=== PATIENT | male | born 1940 | race Caucasian/White ===

== ENCOUNTER 2023-05-29 19:37 | Inpatient (IN) | payer OTHER ==
[~2023-05-29] VITALS: Ht 177.8 cm; Wt 77.0 kg
[2023-05-29 20:45] LABS: Basophils # (auto) 0.1 10 ^3/uL (0-0.2); Basophils % (auto) 0.6 % (0.0-2.0); Eosinophils # (auto) 0.2 10 ^3/uL (0-0.8); Eosinophils % (auto) 2.2 % (0.0-7.0); Hematocrit 43.1 % (41.0-53.0); Hemoglobin 14.5 g/dL (13.5-17.5); Lymphocytes # (auto) 1.6 10 ^3/uL (0.4-5.4); Lymphocytes % (auto) 15.8 % (10.0-50.0); Mean Corpuscular Hgb Conc. 33.6 g/dL (32.0-36.0); Mean Corpuscular Volume 92.2 fL (80.0-100.0); Monocytes # (auto) 1.2 10 ^3/uL (0-1.3); Monocytes % (auto) 11.9 % (0.0-12.0); Neutrophils % (auto) 69.5 % (37.0-80.0); Red Blood Cells 4.68 10^6/uL (4.5-5.90); Red Cell Distribution Width 13.9 % (11.8-14.3); White Blood Cell 10.1 10^3/uL (4.4-10.8)
[2023-05-29 21:04] LABS: Alanine Aminotransferase 39 U/L (7-40); Albumin 4.2 g/dL (3.2-4.8); Alkaline Phosphatase 102 U/L (46-116); Calcium 9.4 mg/dL (8.5-10.1)
[2023-05-29 21:05] LABS: Anion Gap 10 (5-15); Aspartate Aminotransferase 37 U/L (13-40); BUN/Creatinine Ratio 20.2 (10.0-20.0); Bilirubin, Total 0.5 mg/dL (0.2-1.0); Blood Urea Nitrogen 21 mg/dL (9-23); Carbon Dioxide 22 mmol/L (20-30); Chloride 110 mmol/L (98-107); Glucose 91 mg/dL (74-106); Potassium 3.7 mmol/L (3.5-5.1); Sodium 142 mmol/L (136-145); Total Protein 6.1 g/dL (5.7-8.2)
[2023-05-29 21:15] LABS: INR 1.13 (0.9-1.15); Prothrombin Time 11.8 sec (9.3-11.8)
[2023-05-29] MEDS ORDERED: ACETAMINOPHEN 325 MG TAB PO PRN (23:15)
[2023-05-30] VITALS: PULSE 86; RESP 18; O2SAT 98
[2023-05-30 00:51] LABS: Urine Bacteria NONE SEEN /hpf (None Seen); Urine Blood Negative /uL (Negative); Urine Clarity Clear (Clear); Urine Color Colorless (Yellow); Urine Mucus FEW (None Seen); Urine Protein, UAD Negative (Negative); Urine Specific Gravity 1.014 (1.001-1.035); Urine Urobilinogen Normal (Negative); Urine WBC 1 /hpf (0 - 3); Urine pH 6.5 (5.0-8.0)
[2023-05-30] MEDS ORDERED: MORPHINE SULFATE INJ 2 MG/ml SYRG IV PRN ×2 (02:00→15:00)
[2023-05-30] MEDS ORDERED: NITROGLYCERIN 0.4 MG SL TAB SL PRN (02:00)
[2023-05-30] MEDS: ONDANSETRON HCL 4 MG/2 ML VIAL IV PRN (02:21)
[2023-05-30] MEDS: KETOROLAC TROMETH 30 MG/ML 1ML VIAL IV ONE (02:22)
[2023-05-30] MEDS: fentaNYL CITRATE 100 MCG/2 ML VL IV ONE (02:24)
[2023-05-30] MEDS: SODIUM CHLORIDE 0.9% 1,000 ML IV SCH (02:24)
[2023-05-30 06:07] LABS: Basophils # (auto) 0.1 10 ^3/uL (0-0.2); Basophils % (auto) 0.8 % (0.0-2.0); Eosinophils # (auto) 0.3 10 ^3/uL (0-0.8); Eosinophils % (auto) 3.2 % (0.0-7.0); Hematocrit 40.1 % (41.0-53.0); Hemoglobin 13.7 g/dL (13.5-17.5); Lymphocytes # (auto) 1.7 10 ^3/uL (0.4-5.4); Lymphocytes % (auto) 21.3 % (10.0-50.0); Mean Corpuscular Hemoglobin 31.3 pg (28.0-32.0); Mean Corpuscular Hgb Conc. 34.3 g/dL (32.0-36.0); Mean Corpuscular Volume 91.3 fL (80.0-100.0); Monocytes # (auto) 1.2 10 ^3/uL (0-1.3); Monocytes % (auto) 14.5 % (0.0-12.0); Neutrophils # (auto) 4.8 10 ^3/uL (1.6-8.6); Neutrophils % (auto) 60.2 % (37.0-80.0); Nucleated Red Blood Cells % 0.1 %; Red Cell Distribution Width 13.7 % (11.8-14.3)
[2023-05-30 06:24] LABS: Alanine Aminotransferase 29 U/L (7-40); Alkaline Phosphatase 80 U/L (46-116); Anion Gap 8 (5-15); Aspartate Aminotransferase 29 U/L (13-40); BUN/Creatinine Ratio 13.1 (10.0-20.0); Blood Urea Nitrogen 13 mg/dL (9-23); Calcium 8.7 mg/dL (8.7-10.4); Carbon Dioxide 22 mmol/L (20-30); Chloride 109 mmol/L (98-107); Glucose 104 mg/dL (74-106); Potassium 3.3 mmol/L (3.5-5.1); Sodium 139 mmol/L (136-145)
[2023-05-30 06:25] LABS: Albumin 3.9 g/dL (3.2-4.8); Total Protein 6.1 g/dL (5.7-8.2)
[2023-05-30] MEDS: LEVOTHYROXINE SODIUM 25 MCG TAB PO SCH (07:06)
[2023-05-30 08:00] VITALS: PULSE 88; RESP 20; O2SAT 96
[2023-05-30] MEDS: ASPirin 81 mg TAB PO SCH (09:52)
[2023-05-30] MEDS: ENOXAPARIN SOD 40 MG/0.4 ML SYRINGE SC SCH (09:53)
[2023-05-30] MEDS: hydrALAZINE HCL 20 MG/ML VL IV PRN (09:55)
[2023-05-30] MEDS: HYDROcodone-ACET 5/325MG TAB PO PRN (11:06)
[2023-05-30] MEDS: POTASSIUM CHL 20 Meq TABLET PO ONE (13:01)
[2023-05-30] MEDS: HALOPERIDOL LACTATE 5 MG/ML INJ VIAL IM PRN (15:06)
[2023-05-30] MEDS: ATORVASTATIN 20 MG TAB PO SCH (21:08)
[2023-05-31] MEDS: LORazepam 2MG/ML-1ML VIAL IV PRN (06:08)
[2023-05-31 07:15] VITALS: PULSE 99; RESP 18; O2SAT 97
[2023-05-31 07:28] LABS: Chloride 107 mmol/L (98-107); Potassium 3.4 mmol/L (3.5-5.1); Sodium 138 mmol/L (136-145)
[2023-05-31 07:30] LABS: Calcium 9.3 mg/dL (8.5-10.1)
[2023-05-31 07:34] LABS: BUN/Creatinine Ratio 13.6 (10.0-20.0); Blood Urea Nitrogen 12 mg/dL (9-23); Glucose 119 mg/dL (74-106)
[2023-05-31 08:07] LABS: Anion Gap 13 (5-15); Carbon Dioxide 18 mmol/L (20-30)
[2023-05-31] MEDS: METOPROLOL TARTRATE 25 MG TAB PO ONE (11:00)
[2023-05-31] MEDS: POTASSIUM CHL 20 Meq TABLET PO ONE (11:00)
[2023-05-31 18:43] VITALS: RESP 18
[2023-05-31 18:49] VITALS: BP 154/101; PULSE 75; RESP 18; TEMP 97.7; O2SAT 97
[2023-05-31 18:57] VITALS: BP 154/101; PULSE 75; RESP 18; TEMP 97.7; O2SAT 97
[2023-05-31 20:00] VITALS: PULSE 80
[2023-05-31] MEDS: DOCUSATE SOD 100 MG CAP PO PRN (23:02)
[2023-05-31] MEDS: METOPROLOL TARTRATE 25 MG TAB PO SCH (23:03)
[2023-06-01 06:00] VITALS: BP 120/59; PULSE 104
[2023-06-01 07:18] LABS: Calcium 9.2 mg/dL (8.5-10.1); Chloride 106 mmol/L (98-107); Potassium 3.7 mmol/L (3.5-5.1); Sodium 137 mmol/L (136-145)
[2023-06-01 07:19] LABS: Anion Gap 11 (5-15); Carbon Dioxide 20 mmol/L (20-30)
[2023-06-01 07:24] LABS: BUN/Creatinine Ratio 11.5 (10.0-20.0); Blood Urea Nitrogen 12 mg/dL (9-23); Glucose 106 mg/dL (74-106)
[2023-06-01 08:00] VITALS: PULSE 107; PULSE 80; RESP 20
[2023-06-01 09:00] VITALS: BP 155/88; PULSE 113; RESP 22; TEMP 98.8; O2SAT 97
[2023-06-01 13:00] VITALS: BP 142/70; PULSE 97; RESP 20; TEMP 98.1; O2SAT 97
[2023-06-01 13:18] VITALS: BP 104/54; PULSE 97; RESP 20; TEMP 98.1; O2SAT 97
[2023-06-01 16:40] VITALS: BP 149/79; PULSE 84; RESP 18; TEMP 98.8; O2SAT 92
== END 2023-06-01 18:45 | disposition hospice, home (50) | DRG 535 ==
LOC: EDBD 19:37 → ER 19:37 → TELE 05-30 01:55 → TELE-CENTR 05-30 02:33
PROVIDERS: ADMIT Nurse Practitioner Family; ATTEND Internal Medicine Geriatric Medicine
DX: S32.591A Other specified fracture of right pubis, initial encounter for closed fracture (principal); S32.401A Unspecified fracture of right acetabulum, initial encounter for closed fracture; F03.911 Unspecified dementia, unspecified severity, with agitation; R26.81 Unsteadiness on feet; E87.6 Hypokalemia; Z51.5 Encounter for palliative care; E78.5 Hyperlipidemia, unspecified; E03.9 Hypothyroidism, unspecified; I10 Essential (primary) hypertension; W18.39XA Other fall on same level, initial encounter; Y93.89 Activity, other specified; Y92.89 Other specified places as the place of occurrence of the external cause; Y99.8 Other external cause status; S41.111A Laceration without foreign body of right upper arm, initial encounter
CPT/HCPCS: 36415; 70450; 72192; 73070; 80048; 80053; 81001; 84443; 84484; 85025; 85610; 93005; 97163; G0378; J1885; J2405

== ENCOUNTER 2024-01-01 22:32 | Inpatient (IN) | payer OTHER ==
[~2024-01-01] VITALS: Ht 172.7 cm; Wt 77.0 kg
[2024-01-01 23:00] VITALS: PULSE 83; O2SAT 96
[2024-01-01] MEDS: SODIUM CHLORIDE 0.9% 1,000 ML IV ONE (23:00)
--- NOTE | 2024-01-01 23:08 | ED.PDOC ---
Altered Mental Status HPI Comments 83-year-old male came to ER via EMS she will to other live with consciousness. Per EMS, patient does have history of dementia, was picked up at this intermediate facility. Patient has a witnessed fall injury yesterday she was sitting on his wheelchair, you tried to get up and fell backwards hitting the back of his head. Since then patient has been complaining of headaches, generalized weakness, and worsening mental status. Patient currently non verbal at this time Chief Complaint: ALOC Time Seen by MD: 23:07 Reviewed Notes: Cuff Folder Notes Allergies: Coded Allergies: Penicillins (Verified Allergy, Unknown, 01/02/24) Home Meds Unable to Obtain Active Prescriptions or Reported Meds Information Source: Emergency Med Personnel, Spouse Mode of Arrival: EMS Severity: Unable to Care for Self, Unresponsive Timing: Hours Duration: Since onset Prehospital treatment: None Quality: Decreased Alertness, Change in Behavior History of: Dementia Past Medical History PAST MEDICAL HISTORY: Dementia, High Lipids, HTN Surgical History: Pt Confused Family History Family History: Pt Confused Social History Smoker: Non-Smoker Alcohol: Denies ETOH Use Drugs: Denies Drug Use Lives In: Intermediate Unable to Obtain due to: Altered Mental Status, Dementia Physical Exam General Appearance: Other (Chronically ill-looking) HEENT: Normal ENT Inspection, Pharynx Normal, TMs Normal Neck: Full Range of Motion, Non-Tender, Normal, Normal Inspection Respiratory: Chest Non-Tender, Lungs Clear, No Accessory Muscle Use, No Respiratory Distress, Normal Breath Sounds Cardiovascular: No Edema, No JVD, No Murmur, No Gallop, Normal Peripheral Pulses, Regular Rate/Rhythm Breast Exam: Deferred Gastrointestinal: No Organomegaly, Non Tender, No Pulsatile Mass, Normal Bowel Sounds, Soft Genitalia: Deferred Pelvic: Deferred Rectal: Deferred Extremities: No calf tenderness, Normal capillary refill, Normal inspection, Normal range of motion, Non-tender, No pedal edema Musculoskeletal : Apperance: Normal Neurologic: Depressed Affect, Disoriented, Flacid Cerebellar Function: Normal Reflexes: Normal Skin: Dry, Normal Color, Warm Lymphatic: No Adenopathy Was a procedure done? Was a procedure done?: No Differential Diagnosis (ALOC) Differential Diagnosis: Encephalopathy, Closed Head Injury, CVA, SAH X-Ray, Labs, Meds, VS Vital Signs Date Time Temp Pulse Resp B/P (MAP) Pulse Ox O2 Delivery O2 Flow Rate FiO2 01/02/24 00:09 71 13 113/57 (75) 99 01/01/24 23:00 83 96 Nasal Cannula* 4 36 01/01/24 23:00 98.2 83 19 74/44 (54) 96 98.2 01/01/24 22:47 97.4 68 18 147/118 (128) 99 Lab Test 01/02/24 02:00 01/02/24 00:36 01/01/24 23:14 Range/Units Troponin I High Sensitivity 9 7 6 </=54 ng/L White Blood Count 13.5 H 4.4-10.8 10^3/uL Red Blood Count 4.20 L 4.5-5.90 10^6/uL Hemoglobin 13.4 L 13.5-17.5 g/dL Hematocrit 38.6 L 41.0-53.0 % Mean Corpuscular Volume 91.7 80.0-100.0 fL Mean Corpuscular Hemoglobin 31.8 28.0-32.0 pg Mean Corpuscular Hemoglobin Concent 34.7 32.0-36.0 g/dL Red Cell Distribution Width 13.2 11.8-14.3 % Platelet Count 323 140-450 10^3/uL Mean Platelet Volume 7.6 6.9-10.8 fL Neutrophils (%) (Auto) 84.0 H 37.0-80.0 % Lymphocytes (%) (Auto) 7.6 L 10.0-50.0 % Monocytes (%) (Auto) 7.8 0.0-12.0 % Eosinophils (%) (Auto) 0.3 0.0-7.0 % Basophils (%) (Auto) 0.3 0.0-2.0 % Neutrophils # (Auto) 11.3 H 1.6-8.6 10 ^3/uL Lymphocytes # (Auto) 1.0 0.4-5.4 10 ^3/uL Monocytes # (Auto) 1.1 0-1.3 10 ^3/uL Eosinophils # (Auto) 0 0-0.8 10 ^3/uL Basophils # (Auto) 0 0-0.2 10 ^3/uL Nucleated Red Blood Cells 0.0 % Sodium Level 139 136-145 mmol/L Potassium Level 3.9 3.5-5.1 mmol/L Chloride Level 107 98-107 mmol/L Carbon Dioxide Level 24 20-30 mmol/L Anion Gap 8 5-15 Blood Urea Nitrogen 28 H 9-23 mg/dL Creatinine 1.63 H 0.700-1.30 mg/dL Glomerular Filtration Rate Calc 42 >90 mL/min BUN/Creatinine Ratio 17.2 10.0-20.0 Serum Glucose 136 H 74-106 mg/dL Lactic Acid Level 2.0 0.4-2.0 mmol/L Calcium Level 9.5 8.7-10.4 mg/dL Total Bilirubin 0.4 0.2-1.0 mg/dL Aspartate Amino Transferase (AST) 38 13-40 U/L Alanine Aminotransferase (ALT) 59 H 7-40 U/L Alkaline Phosphatase 125 H 46-116 U/L Total Protein 6.5 5.7-8.2 g/dL Albumin 3.8 3.2-4.8 g/dL Current Medications Medications (Trade) Dose Ordered Sig/Randy Route Start Time Stop Time Status Last Admin Sodium Chloride 1,000 ml @ 1,000 mls/hr Q1H ONCE IV 01/01/24 23:00 01/01/24 23:59 DC 01/01/24 23:00 Ondansetron HCl (Zofran) 4 mg ONCE ONCE IV 01/01/24 23:00 01/01/24 23:01 DC 01/02/24 00:01 EXAM: CT HEAD WITHOUT CONTRAST FINDINGS: Supratentorial Region: No evidence for large acute territorial ischemia. No intracranial hemorrhage is noted. Confluent white matter hypoattenuating foci are noted bilaterally, which typically reflect chronic microvascular ischemic changes. Posterior Fossa: No acute abnormality. Brainstem: Unremarkable. Sellar/Suprasellar Region: Unremarkable. Ventricles, Cisterns, Sulci: Age-appropriate. Orbits: Unremarkable. Paranasal Sinuses: Unremarkable. Mastoid Air Cells: Unremarkable. Vasculature: Unremarkable. Bones/Soft Tissues: No acute abnormality. Other: None. IMPRESSION: No acute intracranial process. Moderate to severe chronic small vessel ischemic disease/ hypotensive microangiopathy with diffuse atrophy and ex vacuo dilation of the ventricles. CHEST RADIOGRAPH FINDINGS: Lines and Tubes: None Lungs: No focal consolidation. Pleura: No effusion. No pneumothorax. Cardiomediastinal contours: Unremarkable Bones: No acute osseous abnormality. IMPRESSION: 1. No acute cardiopulmonary disease. Time of Reevaluation: 22:59 Reevaluation 1ST: Unchanged Patient Education/Counseling: Pt Unresponsive Family Education/Counseling: Diagnosis, Treatment Departure 1 Departure Time of Disposition: 02:58 (Patient with altered mental status. Patient is DNR DNI however family does not want patient to receive antibiotics and fluids.) Impression: Primary Impression: Altered mental status Qualified Codes: R41.0 - Disorientation, unspecified Additional Impression: Acute metabolic encephalopathy Disposition: ADMITTED INPATIENT Admit to: [facility] Condition: Guarded e-Prescriptions Unable to Obtain Active Prescriptions or Reported Meds Critical Care Note Critical Care Time?: No Stability Stability form required: No Heart Score Heart Score: Heart Score Response (Comments) Value History N/A 0 EKG N/A 0 Age N/A 0 Risk Factors N/A 0 Troponin N/A 0 Total 0 I personally scribed for SILVANO EVERETT MD ([facility] on 01/01/24 at 23:08. Electronically submitted by Patrick Shields ([employer]). I personally scribed for SILVANO EVERETT MD ([facility] on 01/02/24 at 01:33. Electronically submitted by Patrick Shields ([facility] SILVANO EVERETT MD Jan 01, 2024 23:08
[2024-01-01 23:32] LABS: Basophils # (auto) 0 10 ^3/uL (0-0.2); Basophils % (auto) 0.3 % (0.0-2.0); Eosinophils # (auto) 0 10 ^3/uL (0-0.8); Eosinophils % (auto) 0.3 % (0.0-7.0); Hematocrit 38.6 % (41.0-53.0); Hemoglobin 13.4 g/dL (13.5-17.5); Lymphocytes % (auto) 7.6 % (10.0-50.0); Mean Corpuscular Hemoglobin 31.8 pg (28.0-32.0); Mean Corpuscular Hgb Conc. 34.7 g/dL (32.0-36.0); Mean Corpuscular Volume 91.7 fL (80.0-100.0); Monocytes # (auto) 1.1 10 ^3/uL (0-1.3); Monocytes % (auto) 7.8 % (0.0-12.0); Neutrophils # (auto) 11.3 10 ^3/uL (1.6-8.6); Platelet Count (auto) 323 10^3/uL (140-450); Red Cell Distribution Width 13.2 % (11.8-14.3); White Blood Cell 13.5 10^3/uL (4.4-10.8)
[2024-01-01 23:49] LABS: Alanine Aminotransferase 59 U/L (7-40); Albumin 3.8 g/dL (3.2-4.8); Alkaline Phosphatase 125 U/L (46-116); Anion Gap 8 (5-15); Aspartate Aminotransferase 38 U/L (13-40); BUN/Creatinine Ratio 17.2 (10.0-20.0); Bilirubin, Total 0.4 mg/dL (0.2-1.0); Blood Urea Nitrogen 28 mg/dL (9-23); Calcium 9.5 mg/dL (8.7-10.4); Carbon Dioxide 24 mmol/L (20-30); Chloride 107 mmol/L (98-107); Glucose 136 mg/dL (74-106); Potassium 3.9 mmol/L (3.5-5.1); Sodium 139 mmol/L (136-145); Total Protein 6.5 g/dL (5.7-8.2)
[2024-01-02] MEDS: ONDANSETRON HCL 4 MG/2 ML VIAL IV ONE (00:01)
[2024-01-02] MEDS: CEFEPIME 2GM/50ML NS 50 ML IV ONE (00:01)
--- NOTE | 2024-01-02 00:09 | DVH ---
CHEST RADIOGRAPH Indication:ams Technique: Single frontal view of the chest was obtained Comparison: None FINDINGS: Lines and Tubes: None Lungs: No focal consolidation. Pleura: No effusion. No pneumothorax. Cardiomediastinal contours: Unremarkable Bones: No acute osseous abnormality. IMPRESSION: 1. No acute cardiopulmonary disease.
--- NOTE | 2024-01-02 00:38 | DVH ---
EXAM: CT CERVICAL WITHOUT CONTRAST INDICATION: ams EXAM DATE: 01/02/2024 01:37 AM COMPARISON: None TECHNIQUE: CT of the cervical spine without intravenous contrast. Radiation Dose Information: CT Dose: CTDI volume is 19 mGy. Dose-length product is 558 mGy*cm Findings/ IMPRESSION: No acute fracture or dislocation. Moderate multilevel degenerative changes which include mild this sp inal canal narrowing and moderate to severe osseous bilateral foraminal narrowing. Biapical lungs are clear. Thyroid is unremarkable. Moderate calcifications of the carotid bulbs. Tiny foci of air in the bilateral internal jugular veins, likely from recent instrumentation.
--- NOTE | 2024-01-02 00:48 | DVH ---
EXAM: CT HEAD WITHOUT CONTRAST HISTORY: ams COMPARISON: None TECHNIQUE: Axial images were obtained and reformatted in coronal and sagittal planes. All CT scans at this medical facility are performed using dose modulation techniques as appropriate t o a performed exam including the following: Automated exposure control was utilized; adjustment of th e MA and/or KV according to patient size; and use of iterative reconstruction technique. CT Dose: CTDI volume is 63 mGy. Dose-length product is 1240 mGy*cm FINDINGS: Supratentorial Region: No evidence for large acute territorial ischemia. No intracranial hemorrhage is noted. Confluent white matter hypoattenuating foci are noted bilaterally, which typically reflect chronic microvascular ischemic changes. Posterior Fossa: No acute abnormality. Brainstem: Unremarkable. Sellar/Suprasellar Region: Unremarkable. Ventricles, Cisterns, Sulci: Age-appropriate. Orbits: Unremarkable. Paranasal Sinuses: Unremarkable. Mastoid Air Cells: Unremarkable. Vasculature: Unremarkable. Bones/Soft Tissues: No acute abnormality. Other: None. IMPRESSION: No acute intracranial process. Moderate to severe chronic small vessel ischemic disease/ hypotensive microangiopathy with diffuse atrophy and ex vacuo dilation of the ventricles.
[2024-01-02] MEDS: cefTRIAXone 1GM/50ML D5W 50 ML IV ONE (03:11)
[2024-01-02 05:55] LABS: Urine Bacteria FEW /hpf (None Seen); Urine Blood 1+ /uL (Negative); Urine Clarity Clear (Clear); Urine Color Yellow (Yellow); Urine Protein, UAD TRACE (Negative); Urine Specific Gravity 1.019 (1.001-1.035); Urine Urobilinogen Normal (Negative); Urine WBC 3 /hpf (0 - 3)
[2024-01-02 07:40] VITALS: PULSE 68; RESP 17; O2SAT 100
[2024-01-02] MEDS ORDERED: ACETAMINOPHEN 325 MG TAB PO PRN (09:00)
[2024-01-02] MEDS ORDERED: DOCUSATE SOD 100 MG CAP PO PRN (09:00)
[2024-01-02] MEDS ORDERED: NITROGLYCERIN 0.4 MG SL TAB SL PRN (09:00)
[2024-01-02] MEDS ORDERED: MORPHINE SULFATE INJ 2 MG/ml SYRG IV PRN (09:00)
[2024-01-02] MEDS ORDERED: QUET1TAB11 PO (09:01)
[2024-01-02] MEDS ORDERED: LISI40TA16 PO (09:01)
[2024-01-02] MEDS ORDERED: LEVO75TA6 PO (09:01)
[2024-01-02] MEDS: SODIUM CHLORIDE 0.9% 1,000 ML IV SCH (09:57)
[2024-01-02] MEDS: LEVOTHYROXINE SODIUM 25 MCG TAB PO SCH (10:00)
[2024-01-02] MEDS: QUEtiapine FUMARATE 25 MG TAB PO SCH (10:00)
[2024-01-02] MEDS: LISINOPRIL 20 MG TAB PO SCH (10:00)
[2024-01-02] MEDS: ENOXAPARIN SOD 40 MG/0.4 ML SYRINGE SC SCH (10:05)
--- NOTE | 2024-01-02 10:10 | DVHHP2 ---
History of Present Illness Reason for Visit: Metabolic encephalopathy History of Present Illness This is a 83-year-old male with history of hypertension, hyperlipidemia, Alzheimer and dementia presents to ED via EMS due to altered level of consciousness. The patient has history of dementia and Alzheimer was picked up at [facility] where there was a witnessed fall injury that occurred yesterday. Evaluated patient in ER bed 17, son is at the bedside states that the patient tried to get up and fell backwards hitting the back of his head. He states that the patient has progressively gotten weak and mentation has worsened as he has Alzheimer and dementia. The patient is awake alert to person only unable to answer any medical questions upon evaluation. The son at the bedside is concerned about his symptoms and would like him to be further evaluated and treated. The patient will be admitted under hospitalist care to the telemetry unit for continuous monitoring. The plan has been discussed with the patient and son in which all questions concerns have been addressed. Cardiovascular: HTN, hyperipidemia Past Medical History Alzheimer's Dementia Past Surgical History Unable to obtain patient is confused Family History Unable to obtain patient is confused Smoke: No ALCOHOL: rare (Patient's son states drinks few beers) Drugs: None Lives: Skilled Nursing Domestic Violence: Neg Review of Systems Constitutional: Yes: Weakness Neurological: Confusion Allergies: Coded Allergies: Penicillins (Verified Allergy, Unknown, 01/02/24) Medications Current Medications Medications Dose Ordered Sig/Randy Route Start Time Stop Time Status Last Admin Dose Admin Sodium Chloride 1,000 ml @ 60 mls/hr [id number] IV 01/02/24 09:00 Docusate Sodium 100 mg BIDPRN PRN PO 01/02/24 09:00 Enoxaparin Sodium 40 mg DAILY SC 01/02/24 10:00 Acetaminophen 650 mg Q6HP PRN PO 01/02/24 09:00 Nitroglycerin 0.4 mg Q5MINP PRN SL 01/02/24 09:00 Morphine Sulfate 2 mg Q30M PRN IV 01/02/24 09:00 Quetiapine Fumarate 25 mg DAILY PO 01/02/24 10:00 Levothyroxine Sodium 75 mcg QAM PO 01/02/24 10:00 Lisinopril 40 mg BID PO 01/02/24 10:00 Exam Vital Signs Vital Signs Date Time Temp Pulse Resp B/P (MAP) Pulse Ox O2 Delivery O2 Flow Rate FiO2 01/02/24 08:00 98.7 75 18 128/79 (95) 100 98.7 01/02/24 07:40 Room Air* 0 21 General Appearance: Alert (To person only) HEENT: PERRLA Respiratory: Clear to auscultation, Normal air movement Cardiovascular: Normal S1, Normal S2, No murmurs Abdominal: Normal bowel sounds, Soft, No tenderness, No hepatospenomegaly, No masses Extremities: No clubbing, No cyanosis, No edema, Normal pulses, No tenderness/swelling Labs/Xrays Labs Test 01/02/24 09:09 01/02/24 05:29 01/02/24 02:00 01/01/24 23:14 Range/Units Urine Color Yellow Yellow Urine Clarity Clear Clear Urine pH 6.0 5.0-9.0 Urine Specific [place] 1.019 1.001-1.035 Urine Protein Trace H Negative Urine Ketones Negative Negative Urine Blood 1+ H Negative /uL Urine Nitrite Negative Negative Urine Bilirubin Negative Negative Urine Urobilinogen Normal Negative mg/dL Urine Leukocyte Esterase Negative Negative /uL Urine RBC 17 0 - 3 /hpf Urine WBC 3 0 - 3 /hpf Urine Squamous Epithelial Cells Few <5 /hpf Urine Bacteria Few H None Seen /hpf Urine Glucose Normal Normal mg/dL Troponin I High Sensitivity 9 </=54 ng/L White Blood Count 13.5 H 4.4-10.8 10^3/uL Red Blood Count 4.20 L 4.5-5.90 10^6/uL Hemoglobin 13.4 L 13.5-17.5 g/dL Hematocrit 38.6 L 41.0-53.0 % Mean Corpuscular Volume 91.7 80.0-100.0 fL Mean Corpuscular Hemoglobin 31.8 28.0-32.0 pg Mean Corpuscular Hemoglobin Concent 34.7 32.0-36.0 g/dL Red Cell Distribution Width 13.2 11.8-14.3 % Platelet Count 323 140-450 10^3/uL Mean Platelet Volume 7.6 6.9-10.8 fL Neutrophils (%) (Auto) 84.0 H 37.0-80.0 % Lymphocytes (%) (Auto) 7.6 L 10.0-50.0 % Monocytes (%) (Auto) 7.8 0.0-12.0 % Eosinophils (%) (Auto) 0.3 0.0-7.0 % Basophils (%) (Auto) 0.3 0.0-2.0 % Neutrophils # (Auto) 11.3 H 1.6-8.6 10 ^3/uL Lymphocytes # (Auto) 1.0 0.4-5.4 10 ^3/uL Monocytes # (Auto) 1.1 0-1.3 10 ^3/uL Eosinophils # (Auto) 0 0-0.8 10 ^3/uL Basophils # (Auto) 0 0-0.2 10 ^3/uL Nucleated Red Blood Cells 0.0 % Sodium Level 139 136-145 mmol/L Potassium Level 3.9 3.5-5.1 mmol/L Chloride Level 107 98-107 mmol/L Carbon Dioxide Level 24 20-30 mmol/L Anion Gap 8 5-15 Blood Urea Nitrogen 28 H 9-23 mg/dL Creatinine 1.63 H 0.700-1.30 mg/dL Glomerular Filtration Rate Calc 42 >90 mL/min BUN/Creatinine Ratio 17.2 10.0-20.0 Serum Glucose 136 H 74-106 mg/dL Lactic Acid Level 2.0 0.4-2.0 mmol/L Calcium Level 9.5 8.7-10.4 mg/dL Total Bilirubin 0.4 0.2-1.0 mg/dL Aspartate Amino Transferase (AST) 38 13-40 U/L Alanine Aminotransferase (ALT) 59 H 7-40 U/L Alkaline Phosphatase 125 H 46-116 U/L Total Protein 6.5 5.7-8.2 g/dL Albumin 3.8 3.2-4.8 g/dL ORDERING PHYSICIAN: SILVANO EVERETT MD PROCEDURE(s): HWOCT - HEAD WITHOUT CONTRAST REASON: [facility] ORDER NUMBER(s): [id number], ACCESSION NUMBER(s): [id number] EXAM: CT HEAD WITHOUT CONTRAST HISTORY: [facility] COMPARISON: None TECHNIQUE: Axial images were obtained and reformatted in coronal and sagittal planes. All CT scans at this medical facility are performed using dose modulation techniques as appropriate to a performed exam including the following: Automated exposure control was utilized; adjustment of the MA and/or KV according to patient size; and use of iterative reconstruction technique. CT Dose: CTDI volume is 63 mGy. Dose-length product is 1240 mGy*cm FINDINGS: Supratentorial Region: No evidence for large acute territorial ischemia. No intracranial hemorrhage is noted. Confluent white matter hypoattenuating foci are noted bilaterally, which typically reflect chronic microvascular ischemic changes. Posterior Fossa: No acute abnormality. Brainstem: Unremarkable. Sellar/Suprasellar Region: Unremarkable. Ventricles, Cisterns, Sulci: Age-appropriate. Orbits: Unremarkable. Paranasal Sinuses: Unremarkable. Mastoid Air Cells: Unremarkable. Vasculature: Unremarkable. Bones/Soft Tissues: No acute abnormality. Other: None. IMPRESSION: No acute intracranial process. Moderate to severe chronic small vessel ischemic disease/ hypotensive microangiopathy with diffuse atrophy and ex vacuo dilation of the ventricles. ATED BY: SRIRAM ROGEL DO DICTATED DATE/TIME: 01/02/2445 SIGNED BY: SRIRAM ROGEL DO SIGNED DATE/TIME: 01/02/2445 CC: ORDERING PHYSICIAN: SILVANO EVERETT MD PROCEDURE(s): CXRP - CHEST PORTABLE REASON: [facility] ORDER NUMBER(s): [id number], ACCESSION NUMBER(s): [id number] CHEST RADIOGRAPH Indication:ams Technique: Single frontal view of the chest was obtained Comparison: None FINDINGS: Lines and Tubes: None Lungs: No focal consolidation. Pleura: No effusion. No pneumothorax. Cardiomediastinal contours: Unremarkable Bones: No acute osseous abnormality. IMPRESSION: 1. No acute cardiopulmonary disease. ATED BY: SRIRAM ROGEL DO DICTATED DATE/TIME: 01/02/245 SIGNED BY: SRIRAM ROGEL DO SIGNED DATE/TIME: 01/02/245 CC: ORDERING PHYSICIAN: SILVANO EVERETT MD PROCEDURE(s): CS2 - CERVICAL WITHOUT CONTRAST REASON: [facility] ORDER NUMBER(s): [id number], ACCESSION NUMBER(s): [id number] EXAM: CT CERVICAL WITHOUT CONTRAST INDICATION: [facility] EXAM DATE: 01/02/2024 01:37 AM COMPARISON: None TECHNIQUE: CT of the cervical spine without intravenous contrast. Radiation Dose Information: CT Dose: CTDI volume is 19 mGy. Dose-length product is 558 mGy*cm Findings/ IMPRESSION: No acute fracture or dislocation. Moderate multilevel degenerative changes which include mild this spinal canal narrowing and moderate to severe osseous bilateral foraminal narrowing. Biapical lungs are clear. Thyroid is unremarkable. Moderate calcifications of the carotid bulbs. Tiny foci of air in the bilateral internal jugular veins, likely from recent instrumentation. ATED BY: SRIRAM ROGEL DO DICTATED DATE/TIME: 01/02/2433 SIGNED BY: SRIRAM ROGEL DO SIGNED DATE/TIME: 01/02/2433 CC: Assessment/Plan Assessment/Plan Altered level of consciousness picked up at [facility] facility Patient had witnessed fall injury when attempt to get out of wheelchair fell backwards hitting the back of his head according to patient's son at the bedside Patient with history of Alzheimer and dementia progressively getting worse Patient alert oriented to person only unable to answer any questions upon evaluation Admit to telemetry unit for continuous monitoring Reviewed CBC shows leukocytosis Reviewed BMP elevated liver enzyme Cardiac enzyme negative x3 Urinalysis is negative Reviewed CT head negative Reviewed chest x-ray which is normal Reviewed CT cervical spine negative for fracture Neuro checks Q shift Reorient patient to surroundings Vitamin B12 pending TSH pending PT eval Fall precaution One-to-one bedside sitter if needed Leukocytosis likely due to dehydration Blood culture pending Lactic acid pending Patient given IV antibiotics in the ER and will continue TIN likely due to VM N Creatinine 1.63/GFR 42 IV hydration Serum osmolality pending Urine sodium/creatinine/protein pending Consult Nephrology Dr. Burrell for evaluation and recommendation Hyperlipidemia Lipid panel pending Hypertension Continue lisinopril as prescribed Continue to monitor Social consult: Discharge planning to assist back to [facility] facility/hospice DVT prophylaxis PUD prophylaxis Labs in a.m. Discussed plan of care with the patient and son in which all questions concerns have been addressed Plan discussed with: Patient, Son My Orders Orders - EMILY QUEZADA IT FIELD TECHNICIAN Procedure Category Date Status Time Osmolality, Serum LAB 01/02/24 In Process 08:58 Admit ADMIT 01/02/24 Transmitted 08:59 2 Gm Sodium Diet DIET 01/02/24 Transmitted Breakfast Sodium Chloride 0.9% PHA 01/02/24 In Process 09:00 Docusate Sodium PHA 01/02/24 In Process Capsule (Colace 09:00 Enoxaparin Sodium PHA 01/02/24 In Process (Lovenox) 10:00 Complete Blood Count LAB 01/03/24 Verified 04:00 Comprehensive LAB 01/03/24 Verified Metabolic Panel 04:00 Pt Request For Service PT 01/02/24 Logged 08:59 Carotid Duplx W Color US 01/02/24 Logged DOP 08:59 Condition: Fair [facility] 01/02/24 In Process 08:59 Acetaminophen Tablet [facility] 01/02/24 In Process (Tylenol Tablet) 09:00 Bedrest With Bathroom [facility] 01/02/24 In Process Privileg 08:59 Nitroglycerin [facility] 01/02/24 In Process Sublingual (Ntrostat 09:00 Morphine Sulfate [facility] 01/02/24 In Process Injection 09:00 Stat Ekg For Chest [facility] 01/02/24 In Process Pain 08:59 Notify Of Changes [facility] 01/02/24 In Process From Base 08:59 Health Insurance Assessor For [facility] 01/02/24 In Process 24 Hours 08:59 Emergency Dysrhythmia [facility] 01/02/24 In Process Protocol 08:59 Rhythm Strips Once [facility] 01/02/24 In Process Every Shift 08:59 Oxygen By Nasal RT 01/02/24 Transmitted Cannula 08:59 Quetiapine Fumarate [facility] 01/02/24 In Process Tablet (Seroquel Tab 10:00 Levothyroxine Tablet [facility] 01/02/24 In Process (Synthroid Tablet) 10:00 Lisinopril Tablet [facility] 01/02/24 In Process (Zestril Tablet) 10:00 *Dr. Burrell Group CONS 01/02/24 Transmitted -[place] 09:55 Urine Creatinine LAB 01/02/24 Verified 09:55 Urine Protein LAB 01/02/24 Verified 09:55 Urine Sodium LAB 01/02/24 Verified 09:55 Date of Service: Jan 02, 2024 Billing Provider: EMILY QUEZADA Common Visit Codes: [id number] INP/OBS CARE (HIGH) EMILY QUZEADA IT FIELD TECHNICIAN Jan 02, 2024 10:10
[2024-01-02 10:19] LABS: Protein, Urine 28.9 mg/dL (0.0-11.9)
[2024-01-02 10:21] LABS: Creatinine, Urine 112.67 mg/dL (30.0-125.0)
[2024-01-02 10:36] LABS: Triglycerides 95 mg/dL (< 150)
[2024-01-02 10:37] LABS: LDL Cholesterol 104 mg/dL (< 100)
[2024-01-02 10:38] LABS: Cholesterol 152 mg/dL (< 200); HDL Cholesterol 31 mg/dL (40-59)
--- NOTE | 2024-01-02 11:54 | DVHINCON2 ---
Date of service: Jan 02, 2024 Referring Physician Jaren Levy, nurse practitioner Reason for Consultation Acute kidney injury History of Present Illness Patient 83-year-old male with past medical history significant fo Dementia, High Lipids, and HTN is admitted from a [facility] facility after witnessed fall off a wheelchair. On admission patient found to have elevated BUN creatinine nephrology is consulted for acute kidney injury Past Medical History PAST MEDICAL HISTORY: Dementia, High Lipids, HTN Past Surgical History Unknown Allergies: Coded Allergies: Penicillins (Verified Allergy, Unknown, 01/02/24) Home Meds Reported Medications Lisinopril (Lisinopril) 40 Mg Tab, 1 TAB PO BID 01/02/24 Levothyroxine Sodium (Levothyroxine Sodium) 75 Mcg Tab, 1 TAB PO DAILY 01/02/24 Quetiapine Fumerate (QUETIAPINE FUMARATE) 25 Mg Tab, 1 TAB PO 01/02/24 Current Medications Current Medications Medications (Trade) Dose Ordered Sig/Randy Route PRN Reason Start Time Stop Time Status Last Admin Sodium Chloride 1,000 ml @ 60 mls/hr [id number] IV 01/02/24 09:00 01/02/24 09:57 Docusate Sodium (Colace Capsule) 100 mg BIDPRN PRN PO FOR CONSTIPATION 01/02/24 09:00 Enoxaparin Sodium (Lovenox) 40 mg DAILY SC 01/02/24 10:00 01/02/24 10:05 Acetaminophen (Tylenol Tablet) 650 mg Q6HP PRN PO PAIN SCALE 1-3 OR TEMP>100.4 01/02/24 09:00 Nitroglycerin (Ntrostat Sublingual) 0.4 mg Q5MINP PRN SL FOR CHEST PAIN 01/02/24 09:00 Morphine Sulfate 2 mg Q30M PRN IV FOR CHEST PAIN 01/02/24 09:00 Quetiapine Fumarate (SEROquel TABLET) 25 mg DAILY PO 01/02/24 10:00 Levothyroxine Sodium (Synthroid Tablet) 75 mcg QAM PO 01/02/24 10:00 Lisinopril (Zestril Tablet) 40 mg BID PO 01/02/24 10:00 Ceftriaxone Sodium 50 ml @ 100 mls/hr DAILY@09 IV 01/03/24 09:00 Hydralazine HCl (Apresoline Injection) 10 mg Q6HP PRN IV SBP>160 01/02/24 10:30 01/02/24 13:09 Family History: Patient reports no known family medical history. Review of Systems Can not be obtained due altered level of consciousness and dementia H&P Exam Vital Signs/I&O Vital Sign Date Time Temp Pulse Resp B/P (MAP) Pulse Ox O2 Delivery O2 Flow Rate FiO2 01/02/24 16:00 91 01/02/24 16:00 98.5 14 147/80 (102) 100 98.5 01/02/24 07:40 Room Air* 0 21 Physical Exam Patient lying in bed mowing mumbling, son at the bedside Lungs clear to auscultation bilaterally Cardiac exam regular rate and rhythm GI soft nontender Danielle catheter Extremities no clubbing cyanosis or edema Neuro patient is confused Labs/Diagnostic Data Labs/Diagnostic Data Laboratory Tests Test 01/02/24 10:28 01/02/24 09:09 01/02/24 05:29 01/02/24 02:00 Range/Units Lactic Acid Level 1.1 0.4-2.0 mmol/L Serum Osmolality 298 278-298 mOsm/kg Phosphorus Level 2.9 2.4-5.1 mg/dL Magnesium Level 2.0 1.6-2.6 mg/dL Triglycerides Level 95 < 150 mg/dL Cholesterol Level 152 < 200 mg/dL LDL Cholesterol 104 H < 100 mg/dL HDL Cholesterol 31 L 40-59 mg/dL Thyroid Stimulating Hormone (TSH) 2.29 0.55-4.78 uIU/mL Urine Color Yellow Yellow Urine Clarity Clear Clear Urine pH 6.0 5.0-9.0 Urine Specific Amelia 1.019 1.001-1.035 Urine Protein Trace H Negative Urine Ketones Negative Negative Urine Blood 1+ H Negative /uL Urine Nitrite Negative Negative Urine Bilirubin Negative Negative Urine Urobilinogen Normal Negative mg/dL Urine Leukocyte Esterase Negative Negative /uL Urine RBC 17 0 - 3 /hpf Urine WBC 3 0 - 3 /hpf Urine Squamous Epithelial Cells Few <5 /hpf Urine Bacteria Few H None Seen /hpf Urine Creatinine 112.67 30.0-125.0 mg/dL Urine Sodium 72 40-220 mmol/L Urine Glucose Normal Normal mg/dL Urine Total Protein 28.9 H 0.0-11.9 mg/dL Troponin I High Sensitivity 9 </=54 ng/L Test 01/02/24 00:36 01/01/24 23:14 Range/Units Troponin I High Sensitivity 7 6 </=54 ng/L White Blood Count 13.5 H 4.4-10.8 10^3/uL Red Blood Count 4.20 L 4.5-5.90 10^6/uL Hemoglobin 13.4 L 13.5-17.5 g/dL Hematocrit 38.6 L 41.0-53.0 % Mean Corpuscular Volume 91.7 80.0-100.0 fL Mean Corpuscular Hemoglobin 31.8 28.0-32.0 pg Mean Corpuscular Hemoglobin Concent 34.7 32.0-36.0 g/dL Red Cell Distribution Width 13.2 11.8-14.3 % Platelet Count 323 140-450 10^3/uL Mean Platelet Volume 7.6 6.9-10.8 fL Neutrophils (%) (Auto) 84.0 H 37.0-80.0 % Lymphocytes (%) (Auto) 7.6 L 10.0-50.0 % Monocytes (%) (Auto) 7.8 0.0-12.0 % Eosinophils (%) (Auto) 0.3 0.0-7.0 % Basophils (%) (Auto) 0.3 0.0-2.0 % Neutrophils # (Auto) 11.3 H 1.6-8.6 10 ^3/uL Lymphocytes # (Auto) 1.0 0.4-5.4 10 ^3/uL Monocytes # (Auto) 1.1 0-1.3 10 ^3/uL Eosinophils # (Auto) 0 0-0.8 10 ^3/uL Basophils # (Auto) 0 0-0.2 10 ^3/uL Nucleated Red Blood Cells 0.0 % Sodium Level 139 136-145 mmol/L Potassium Level 3.9 3.5-5.1 mmol/L Chloride Level 107 98-107 mmol/L Carbon Dioxide Level 24 20-30 mmol/L Anion Gap 8 5-15 Blood Urea Nitrogen 28 H 9-23 mg/dL Creatinine 1.63 H 0.700-1.30 mg/dL Glomerular Filtration Rate Calc 42 >90 mL/min BUN/Creatinine Ratio 17.2 10.0-20.0 Serum Glucose 136 H 74-106 mg/dL Lactic Acid Level 2.0 0.4-2.0 mmol/L Calcium Level 9.5 8.7-10.4 mg/dL Total Bilirubin 0.4 0.2-1.0 mg/dL Aspartate Amino Transferase (AST) 38 13-40 U/L Alanine Aminotransferase (ALT) 59 H 7-40 U/L Alkaline Phosphatase 125 H 46-116 U/L Total Protein 6.5 5.7-8.2 g/dL Albumin 3.8 3.2-4.8 g/dL Assessment Acute kidney injury superimposed Chronic Kidney Disease secondary hemodynamic mediated Dementia Hypertension Urinary retention Recommendations Closely monitor fluid and electrolytes Avoid nephrotoxic medications Danielle catheter Strict I&Os Check kidney ultrasound Resume home medications We will continue to monitor Patient seen and examined by myself. I discussed my plan of care with the patient's son Farhat and the primary nurse at the bedside I would like to thank Jaren for the consult, will follow up Plan discussed with: Son, Other (nurse) FER GONCALVES MD Jan 02, 2024 11:54
--- NOTE | 2024-01-02 12:54 | DVH ---
Carotid Duplex Clinical History: aloc Comparison: None Technique: Duplex Doppler evaluation of the extracranial carotid and vertebral arteries including color Doppler and spectral/pulsed waveform analysis was performed. Findings: RIGHT SIDE: The peak systolic velocities are 119 cm/s in the CCA, 111 cm/s in the ICA. The ICA/CCA ratio is 0.9. The external carotid artery is patent with peak systolic velocity of 51 cm/s proximally. There is appropriate antegrade flow in the right vertebral artery. LEFT SIDE: The peak systolic velocities are 93 cm/s in the CCA, 101 cm/s in the ICA. The ICA/CCA ratio is 1.1. The external carotid artery is patent with peak systolic velocity of 112 cm/s proximally. There is appropriate antegrade flow in the left vertebral artery. IMPRESSION: No hemodynamically significant stenosis noted in the right carotid system. No hemodynamically significant stenosis noted in the left carotid system. Reference: Radiology 2003; 229:340-346 Normal ICA PSV is <125 cm/sec and no plaque or intimal thickening is visible sonographically additional criteria include ICA/CCA PSV ratio <2.0 and ICA EDV <40 cm/sec <50% ICA stenosis ICA PSV is <125 cm/sec and plaque or intimal thickening is visible sonographically additional criteria include ICA/CCA PSV ratio <2.0 and ICA EDV <40 cm/sec 50-69% ICA stenosis ICA PSV is 125-230 cm/sec and plaque is visible sonographically additional criteria include ICA/CCA PSV ratio of 2.0-4.0 and ICA EDV of 40-100 cm/sec 70% ICA stenosis but less than near occlusion ICA PSV is >230 cm/sec and visible plaque and luminal narrowing are seen at durham-scale and color Dopp ler ultrasound (the higher the Doppler parameters lie above the threshold of 230 cm/sec, the greater the likelihood of severe disease) additional criteria include ICA/CCA PSV ratio >4 and ICA EDV >100 cm/sec
[2024-01-02] MEDS: hydrALAZINE HCL 20 MG/ML VL IV PRN (13:09)
[2024-01-02 13:20] LABS: Phosphorus 2.9 mg/dL (2.4-5.1)
--- NOTE | 2024-01-02 14:32 | DVH ---
INDICATION: TIN. TECHNIQUE: Multiple real-time sonographic images of the kidneys and bladder were obtained. COMPARISON: None FINDINGS: RIGHT kidney measures 10.67 cm in length. No hydronephrosis. LEFT kidney measures 9.3 cm in length. No hydronephrosis. Danielle catheter in the bladder in the bladder is empty. IMPRESSION: 1. 10.67 cm long right kidney. Left kidney measures 9.35 cm long. 2. No hydronephrosis. 3. No cortical thinning or increased cortical echogenicity.
[2024-01-02 20:17] VITALS: PULSE 97; RESP 18
[2024-01-02 21:00] VITALS: BP 166/80; PULSE 96; RESP 20; TEMP 97.5; O2SAT 97
[2024-01-02 22:45] VITALS: BP 145/72; PULSE 92
[2024-01-03] VITALS (9 sets, daily range): BP systolic 103–174; BP diastolic 56–93; PULSE 66–98; RESP 17–20; TEMP 97.8–99.4; O2SAT 92–97
[2024-01-03 07:52] LABS: Basophils # (auto) 0.1 10 ^3/uL (0-0.2); Basophils % (auto) 0.7 % (0.0-2.0); Eosinophils # (auto) 0.2 10 ^3/uL (0-0.8); Eosinophils % (auto) 1.5 % (0.0-7.0); Hematocrit 37.1 % (41.0-53.0); Hemoglobin 13.3 g/dL (13.5-17.5); Lymphocytes # (auto) 1.7 10 ^3/uL (0.4-5.4); Lymphocytes % (auto) 15.3 % (10.0-50.0); Mean Corpuscular Hemoglobin 32.4 pg (28.0-32.0); Mean Corpuscular Hgb Conc. 35.8 g/dL (32.0-36.0); Mean Corpuscular Volume 90.7 fL (80.0-100.0); Monocytes % (auto) 9.2 % (0.0-12.0); Neutrophils # (auto) 8.3 10 ^3/uL (1.6-8.6); Neutrophils % (auto) 73.3 % (37.0-80.0); Platelet Count (auto) 316 10^3/uL (140-450); Red Blood Cells 4.09 10^6/uL (4.5-5.90); Red Cell Distribution Width 13.1 % (11.8-14.3); White Blood Cell 11.3 10^3/uL (4.4-10.8)
[2024-01-03 08:08] LABS: Alanine Aminotransferase 44 U/L (7-40); Alkaline Phosphatase 116 U/L (46-116); Anion Gap 9 (5-15); Aspartate Aminotransferase 35 U/L (13-40); BUN/Creatinine Ratio 20.2 (10.0-20.0); Bilirubin, Total 0.7 mg/dL (0.2-1.0); Blood Urea Nitrogen 17 mg/dL (9-23); Calcium 9.1 mg/dL (8.7-10.4); Carbon Dioxide 20 mmol/L (20-30); Chloride 107 mmol/L (98-107); Glucose 96 mg/dL (74-106); Potassium 3.7 mmol/L (3.5-5.1); Sodium 136 mmol/L (136-145)
[2024-01-03 08:12] LABS: Albumin 3.5 g/dL (3.2-4.8)
--- NOTE | 2024-01-03 12:00 | DVHPNRES ---
Progress Note Date Seen: Jan 03, 2024 Resident Creating Document: KIRSTY PORTILLO RESIDENT Medical Necessity Reason Pt with a Central, PICC or Fol: Yes The following are medically ne: Danielle Catheter Subjective Review of Systems Patient is a 83-year-old male with past medical history of Alzheimer's dementia, hypertension, hyperlipidemia, hypothyroidism, who was brought in by family due to increasing confusion. Patient moved into an assisted living facility 3 weeks ago, prior to that was living at home with his . Per , patient had a witnessed fall from the wheelchair on 01/02/2024, after which he has been increasingly confused. Per patient's , patient is unable to complete activities of daily living and she found him slumped over in his wheelchair a few times at the assisted living facility. Patient is incomprehensible and altered. Home medications: Levothyroxine, lisinopril, quetiapine, temazepam Past Hospitalization: In May 2023 for pubic fracture Social & Personal history: Patient has Alzheimer's dementia, lives at an assisted facility where he moved 3 weeks ago. At baseline he is confused and forgetful. Allergies: Penicillin Patient seen and examined at bedside. Patient is unable to answer questions. Review of systems could not be completed. Objective vital signs Vital Sign Date Time Temp Pulse Resp B/P (MAP) Pulse Ox O2 Delivery O2 Flow Rate FiO2 01/03/24 08:53 97.9 66 17 139/83 (101) 95 97.9 01/02/24 20:17 Room Air* 0 21 Total Intake and Output 01/02/24 01/02/24 01/03/24 15:00 23:00 07:00 Intake Total 303 ml 120 ml 917 ml Output Total 1300 ml 700 ml Balance 303 ml -1180 ml 217 ml medications Current Medications Medications Dose Ordered Sig/Randy Route Start Time Stop Time Status Last Admin Dose Admin Sodium Chloride 1,000 ml @ 60 mls/hr [id number] IV 01/02/24 09:00 01/03/24 05:53 60 MLS/HR Docusate Sodium 100 mg BIDPRN PRN PO 01/02/24 09:00 Enoxaparin Sodium 40 mg DAILY SC 01/02/24 10:00 01/02/24 10:05 40 MG Acetaminophen 650 mg Q6HP PRN PO 01/02/24 09:00 Nitroglycerin 0.4 mg Q5MINP PRN SL 01/02/24 09:00 Morphine Sulfate 2 mg Q30M PRN IV 01/02/24 09:00 Quetiapine Fumarate 25 mg DAILY PO 01/02/24 10:00 Levothyroxine Sodium 75 mcg QAM PO 01/02/24 10:00 01/03/24 06:02 75 MCG Lisinopril 40 mg BID PO 01/02/24 10:00 01/02/24 21:41 40 MG Ceftriaxone Sodium 50 ml @ 100 mls/hr DAILY@09 IV 01/03/24 09:00 Hydralazine HCl 10 mg Q6HP PRN IV 01/02/24 10:30 01/03/24 01:07 10 MG Examination General Appearance: Cooperative. Well developed. Well nourished. NAD Head Exam: Normal inspection Neck Exam: Normal inspection. Non-tender. Normal alignment Pulmonary/Respiratory: Chest non-tender. Clear bilateral breath sounds, no crackles, no wheezing. Cardiovascular/Chest: Regular rate and rhythm. No murmurs. No JVD. Peripheral Pulses: 2+ Radial (R). 2+ Radial (L). 2+ Pedal (R). 2+ Pedal (L) Abdominal Exam: Normal bowel sounds. Soft. normal abdomen, no visible veins, Nontender. No hepatospenomegaly. No masses Upper extremities: Wound noted on the left forearm Ankle Exam: Negative ankle edema Lower extremities: Negative lower extremity edema Neuro/Mental Status: A&O x1. Incoherent Skin Exam: Normal inspection. Normal color. Warm. Dry laboratory and microbiology Laboratory Tests 01/03/24 07:03 Test 01/03/24 07:03 Range/Units Serum Glucose 96 74-106 mg/dL Problem List/Assessment/Plan Problem List/Assessment/Plan # S/p mechanical fall - cervical spine CT: No acute fracture or dislocation. Moderate multilevel degenerative changes which include mild spinal canal narrowing and moderate to severe nauseous bilateral foraminal narrowing. Moderate calcifications of the carotid bulbs. Tiny foci of air in the bilateral internal jugular veins, likely from recent instrumentation. - CXR: No acute cardiopulmonary disease - head CT: No acute intracranial process. 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 - carotid Doppler: No hemodynamically significant stenosis noted in the right and left carotid systems. 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 Left kidney 9.35 cm long. No hydronephrosis. No cortical thinning or increased cortical echogenicity. - nephrology consulted; closely monitor fluid and electrolytes. Avoid nephrotoxic medication. Strict I&Os. # Alzheimer's dementia - quetiapine 25 mg p.o. daily - ordered PT eval # hypertension - lisinopril 40 mg p.o. b.i.d. - Hydralazine 10 mg IV q.6 as needed for SBP > 160 # hypothyroidism - levothyroxine 75 mcg p.o. q.a.m. DVT prophylaxis: Levonox 40mg Goals of care: DNR Plan discussed with patient's Plan discussed with Dr. Ribeiro Plan discussed with: Patient, Spouse, Other (RN) Date of Service: Jan 03, 2024 Billing Provider: ALONZO RIBEIRO MD Common Visit Codes: [id number] INP/OBS CARE(HIGH) KIRSTY PORTILLO RESIDENT Jan 03, 2024 12:00 ALONZO RIBEIRO MD Jan 04, 2024 09:50
[2024-01-03] MEDS: cefTRIAXone 1GM/50ML D5W 50 ML IV SCH (13:03)
[2024-01-03] MEDS ORDERED: TEMA15CA PO (13:40)
--- NOTE | 2024-01-03 16:20 | DVHPN2 ---
Progress Note Date Seen: Jan 03, 2024 Medical Necessity Reason Pt with a Central, PICC or Fol: Yes The following are medically ne: Danielle Catheter Subjective Patient reports: No new complaints Other Systems: Patient seen and examined by myself today in f/u Objective vital signs Vital Sign Date Time Temp Pulse Resp B/P (MAP) Pulse Ox O2 Delivery O2 Flow Rate FiO2 01/03/24 13:04 103/71 01/03/24 13:00 98.2 89 18 96 98.2 01/02/24 20:17 Room Air* 0 21 Total Intake and Output 01/02/24 01/02/24 01/03/24 15:00 23:00 07:00 Intake Total 303 ml 120 ml 917 ml Output Total 1300 ml 700 ml Balance 303 ml -1180 ml 217 ml medications Current Medications Medications Dose Ordered Sig/Randy Route Start Time Stop Time Status Last Admin Dose Admin Sodium Chloride 1,000 ml @ 60 mls/hr [id number] IV 01/02/24 09:00 01/03/24 05:53 60 MLS/HR Docusate Sodium 100 mg BIDPRN PRN PO 01/02/24 09:00 Enoxaparin Sodium 40 mg DAILY SC 01/02/24 10:00 01/03/24 13:04 40 MG Acetaminophen 650 mg Q6HP PRN PO 01/02/24 09:00 Nitroglycerin 0.4 mg Q5MINP PRN SL 01/02/24 09:00 Morphine Sulfate 2 mg Q30M PRN IV 01/02/24 09:00 Quetiapine Fumarate 25 mg DAILY PO 01/02/24 10:00 01/03/24 13:03 25 MG Levothyroxine Sodium 75 mcg QAM PO 01/02/24 10:00 01/03/24 06:02 75 MCG Lisinopril 40 mg BID PO 01/02/24 10:00 01/03/24 13:04 40 MG Ceftriaxone Sodium 50 ml @ 100 mls/hr DAILY@09 IV 01/03/24 09:00 01/03/24 13:03 100 MLS/HR Hydralazine HCl 10 mg Q6HP PRN IV 01/02/24 10:30 01/03/24 01:07 10 MG Examination: LUNGS:Normal, CVS:Normal, MSK:Abnormal laboratory and microbiology Laboratory Tests 01/03/24 07:03 Test 9/22/24 07:03 Range/Units Serum Glucose 96 74-106 mg/dL Microbiology Date/Time Source Procedure Growth Status 01/02/24 22:50 Nose MRSA Screen - Final Complete 01/02/24 13:05 Blood Blood Culture - Preliminary NO GROWTH AFTER 24 HOURS OF INCUBATION. Resulted Problem List/Assessment/Plan Problem List/Assessment/Plan Acute kidney injury superimposed Chronic Kidney Disease secondary hemodynamic mediated Dementia Hypertension Urinary retention Recommendations Kidney function resolved back to normal increased UOP Danielle catheter Strict I&Os kidney ultrasound reported WNL I will sign off this case, please re consult as needed Thank you for the consult Plan discussed with: FER Glover MD Jan 03, 2024 16:20
[2024-01-04 01:00] VITALS: BP 138/68; PULSE 91; RESP 18; TEMP 97.8; O2SAT 97
[2024-01-04 05:00] VITALS: BP 140/70; PULSE 86; RESP 18; TEMP 98.3; O2SAT 97
[2024-01-04 07:42] LABS: Anion Gap 9 (5-15); Carbon Dioxide 21 mmol/L (20-30); Chloride 106 mmol/L (98-107); Potassium 3.7 mmol/L (3.5-5.1); Sodium 136 mmol/L (136-145)
[2024-01-04 07:43] LABS: Calcium 9.1 mg/dL (8.7-10.4)
[2024-01-04 07:48] LABS: BUN/Creatinine Ratio 18.1 (10.0-20.0); Blood Urea Nitrogen 15 mg/dL (9-23); Glucose 99 mg/dL (74-106)
[2024-01-04 07:53] LABS: Basophils # (auto) 0 10 ^3/uL (0-0.2); Basophils % (auto) 0.6 % (0.0-2.0); Eosinophils # (auto) 0.2 10 ^3/uL (0-0.8); Eosinophils % (auto) 2.4 % (0.0-7.0); Hematocrit 36.1 % (41.0-53.0); Lymphocytes # (auto) 1.5 10 ^3/uL (0.4-5.4); Lymphocytes % (auto) 17.1 % (10.0-50.0); Mean Corpuscular Hemoglobin 32.3 pg (28.0-32.0); Mean Corpuscular Hgb Conc. 35.9 g/dL (32.0-36.0); Mean Corpuscular Volume 90.1 fL (80.0-100.0); Monocytes # (auto) 1.2 10 ^3/uL (0-1.3); Monocytes % (auto) 13.7 % (0.0-12.0); Neutrophils # (auto) 5.8 10 ^3/uL (1.6-8.6); Neutrophils % (auto) 66.2 % (37.0-80.0); Platelet Count (auto) 319 10^3/uL (140-450); Red Blood Cells 4.01 10^6/uL (4.5-5.90); White Blood Cell 8.7 10^3/uL (4.4-10.8)
[2024-01-04 08:00] VITALS: PULSE 84; PULSE 89; RESP 20; O2SAT 95
[2024-01-04 09:00] VITALS: BP 139/75; PULSE 89; RESP 20; TEMP 98.1; O2SAT 95
[2024-01-04 13:00] VITALS: BP 127/69; PULSE 88; RESP 22; TEMP 98.2; O2SAT 96
--- NOTE | 2024-01-04 19:27 | DVHDSRES ---
Discharge Summary Date of Admission Resident Creating Document: JAIRO JUNE RESIDENT Jan 02, 2024 at 09:01 Date of Discharge: Jan 05, 2024 Admitting Diagnosis Altered level of consciousness due to acute metabolic encephalopathy TIN likely hemodynamically mediated on CKD Wounds: Wound was noted on the left forearm. Labs/Diagnostic Data: Laboratory Results Test 01/04/24 05:35 01/03/24 07:03 01/03/24 07:02 01/02/24 10:28 White Blood Count 8.7 10^3/uL (4.4-10.8) Red Blood Count 4.01 10^6/uL (4.5-5.90) Hemoglobin 13.0 g/dL (13.5-17.5) Hematocrit 36.1 % (41.0-53.0) Mean Corpuscular Volume 90.1 fL (80.0-100.0) Mean Corpuscular Hemoglobin 32.3 pg (28.0-32.0) Mean Corpuscular Hemoglobin Concent 35.9 g/dL (32.0-36.0) Red Cell Distribution Width 13.0 % (11.8-14.3) Platelet Count 319 10^3/uL (140-450) Mean Platelet Volume 7.8 fL (6.9-10.8) Neutrophils (%) (Auto) 66.2 % (37.0-80.0) Lymphocytes (%) (Auto) 17.1 % (10.0-50.0) Monocytes (%) (Auto) 13.7 % (0.0-12.0) Eosinophils (%) (Auto) 2.4 % (0.0-7.0) Basophils (%) (Auto) 0.6 % (0.0-2.0) Neutrophils # (Auto) 5.8 10 ^3/uL (1.6-8.6) Lymphocytes # (Auto) 1.5 10 ^3/uL (0.4-5.4) Monocytes # (Auto) 1.2 10 ^3/uL (0-1.3) Eosinophils # (Auto) 0.2 10 ^3/uL (0-0.8) Basophils # (Auto) 0 10 ^3/uL (0-0.2) Nucleated Red Blood Cells 0.0 % Sodium Level 136 mmol/L (136-145) Potassium Level 3.7 mmol/L (3.5-5.1) Chloride Level 106 mmol/L (98-107) Carbon Dioxide Level 21 mmol/L (20-30) Anion Gap 9 (5-15) Blood Urea Nitrogen 15 mg/dL (9-23) Creatinine 0.83 mg/dL (0.700-1.30) Glomerular Filtration Rate Calc 87 mL/min (>90) BUN/Creatinine Ratio 18.1 (10.0-20.0) Serum Glucose 99 mg/dL (74-106) Calcium Level 9.1 mg/dL (8.7-10.4) Total Bilirubin 0.7 mg/dL (0.2-1.0) Aspartate Amino Transferase (AST) 35 U/L (13-40) Alanine Aminotransferase (ALT) 44 U/L (7-40) Alkaline Phosphatase 116 U/L (46-116) Total Protein 6.0 g/dL (5.7-8.2) Albumin 3.5 g/dL (3.2-4.8) Parathyroid Hormone (Intact) 49.4 pg/mL (18.4-80.1) Lactic Acid Level 1.1 mmol/L (0.4-2.0) Test 01/02/24 09:09 01/02/24 05:29 01/02/24 02:00 Serum Osmolality 298 mOsm/kg (278-298) Phosphorus Level 2.9 mg/dL (2.4-5.1) Magnesium Level 2.0 mg/dL (1.6-2.6) Triglycerides Level 95 mg/dL (< 150) Cholesterol Level 152 mg/dL (< 200) LDL Cholesterol 104 mg/dL (< 100) HDL Cholesterol 31 mg/dL (40-59) Vitamin B12 Level 1183 pg/mL (211-911) Vitamin D 25-Hydroxy 33.3 ng/mL (30.0-100) Thyroid Stimulating Hormone (TSH) 2.29 uIU/mL (0.55-4.78) Urine Color Yellow (Yellow) Urine Clarity Clear (Clear) Urine pH 6.0 (5.0-9.0) Urine Specific [place] 1.019 (1.001-1.035) Urine Protein Trace (Negative) Urine Ketones Negative (Negative) Urine Blood 1+ /uL (Negative) Urine Nitrite Negative (Negative) Urine Bilirubin Negative (Negative) Urine Urobilinogen Normal mg/dL (Negative) Urine Leukocyte Esterase Negative /uL (Negative) Urine RBC 17 /hpf (0 - 3) Urine WBC 3 /hpf (0 - 3) Urine Squamous Epithelial Cells Few /hpf (<5) Urine Bacteria Few /hpf (None Seen) Urine Creatinine 112.67 mg/dL (30.0-125.0) Urine Sodium 72 mmol/L (40-220) Urine Glucose Normal mg/dL (Normal) Urine Total Protein 28.9 mg/dL (0.0-11.9) Troponin I High Sensitivity 9 ng/L (</=54) Other Laboratory Tests 01/04/24 05:35 Brief Hx & Hospital Course: The Patient is a 83-year-old male with past medical history of Alzheimer's dementia, hypertension, hyperlipidemia, hypothyroidism, who was brought in by family due to increasing confusion. Patient moved into an assisted living facility 3 weeks ago, prior to that was living at home with his . Per , patient had a witnessed fall from the wheelchair on 01/02/2024, after which he has been increasingly confused. Per patient's , patient is unable to complete activities of daily living and she found him slumped over in his wheelchair a few times at the assisted living facility. Patient is incomprehensible and altered. On admission patient found to have elevated BUN creatinine and nephrology is consulted for acute kidney injury.CT scan of the cervical spine revealed no acute fracture or dislocation and CT scan of the head demonstrated moderate multilevel degenerative changes which include mild this spinal canal narrowing and moderate to severe osseous bilateral foraminal narrowing and no acute intracranial process, Moderate to severe chronic small vessel ischemic disease/ hypotensive microangiopathy with diffuse atrophy and ex vacuo dilation of the ventricles. Carotid doppler revealed no hemodynamically significant stenosis noted in the right and left carotid system. The patient was treated with IV ceftriaxone, Lovenox and resumed home medication. community mental health social worker was consulted regarding the discharge planning and discharge plan was discussed with the patient's regarding the resume of the hospice care. The patient was discharged to hospice today and advice to resume home medication. Examination General Appearance: Cooperative. Well developed. Well nourished. NAD Head Exam: Normal inspection Neck Exam: Normal inspection. Non-tender. Normal alignment Pulmonary/Respiratory: Chest non-tender. Clear bilateral breath sounds, no crackles, no wheezing. Cardiovascular/Chest: Regular rate and rhythm. No murmurs. No JVD. Peripheral Pulses: 2+ Radial (R). 2+ Radial (L). 2+ Pedal (R). 2+ Pedal (L) Abdominal Exam: Normal bowel sounds. Soft. normal abdomen, no visible veins, Nontender. No hepatospenomegaly. No masses Upper extremities: Wound noted on the left forearm Ankle Exam: Negative ankle edema Lower extremities: Negative lower extremity edema Neuro/Mental Status: A&O x1. Incoherent Skin Exam: Normal inspection. Normal color. Warm. Dry Consults/Reason for consult Nephrology was consulted regarding management of TIN. Operations or Procedures EXAM: CT CERVICAL WITHOUT CONTRAST INDICATION: [facility] EXAM DATE: 01/02/2024 01:37 AM COMPARISON: None TECHNIQUE: CT of the cervical spine without intravenous contrast. Radiation Dose Information: CT Dose: CTDI volume is 19 mGy. Dose-length product is 558 mGy*cm Findings/ IMPRESSION: No acute fracture or dislocation. Moderate multilevel degenerative changes which include mild this spinal canal narrowing and moderate to severe osseous bilateral foraminal narrowing. Biapical lungs are clear. Thyroid is unremarkable. Moderate calcifications of the carotid bulbs. Tiny foci of air in the bilateral internal jugular veins, likely from recent instrumentation. CHEST RADIOGRAPH Indication:ams Technique: Single frontal view of the chest was obtained Comparison: None FINDINGS: Lines and Tubes: None Lungs: No focal consolidation. Pleura: No effusion. No pneumothorax. Cardiomediastinal contours: Unremarkable Bones: No acute osseous abnormality. IMPRESSION: 1. No acute cardiopulmonary disease. EXAM: CT HEAD WITHOUT CONTRAST HISTORY: ams COMPARISON: None TECHNIQUE: Axial images were obtained and reformatted in coronal and sagittal planes. All CT scans at this medical facility are performed using dose modulation techniques as appropriate to a performed exam including the following: Automated exposure control was utilized; adjustment of the MA and/or KV according to patient size; and use of iterative reconstruction technique. CT Dose: CTDI volume is 63 mGy. Dose-length product is 1240 mGy*cm FINDINGS: Supratentorial Region: No evidence for large acute territorial ischemia. No intracranial hemorrhage is noted. Confluent white matter hypoattenuating foci are noted bilaterally, which typically reflect chronic microvascular ischemic changes. Posterior Fossa: No acute abnormality. Brainstem: Unremarkable. Sellar/Suprasellar Region: Unremarkable. Ventricles, Cisterns, Sulci: Age-appropriate. Orbits: Unremarkable. Paranasal Sinuses: Unremarkable. Mastoid Air Cells: Unremarkable. Vasculature: Unremarkable. Bones/Soft Tissues: No acute abnormality. Other: None. IMPRESSION: No acute intracranial process. Moderate to severe chronic small vessel ischemic disease/ hypotensive microangiopathy with diffuse atrophy and ex vacuo dilation of the ventricles. Clinical History: aloc Comparison: None Technique: Duplex Doppler evaluation of the extracranial carotid and vertebral arteries including color Doppler and spectral/pulsed waveform analysis was performed. Findings: RIGHT SIDE: The peak systolic velocities are 119 cm/s in the CCA, 111 cm/s in the ICA. The ICA/CCA ratio is 0.9. The external carotid artery is patent with peak systolic velocity of 51 cm/s proximally. There is appropriate antegrade flow in the right vertebral artery. LEFT SIDE: The peak systolic velocities are 93 cm/s in the CCA, 101 cm/s in the ICA. The ICA/CCA ratio is 1.1. The external carotid artery is patent with peak systolic velocity of 112 cm/s proximally. There is appropriate antegrade flow in the left vertebral artery. IMPRESSION: No hemodynamically significant stenosis noted in the right carotid system. No hemodynamically significant stenosis noted in the left carotid system. Reference: Radiology 2003; 229:[id number] Normal ICA PSV is <125 cm/sec and no plaque or intimal thickening is visible sonographically additional criteria include ICA/CCA PSV ratio <2.0 and ICA EDV <40 cm/sec <50% ICA stenosis ICA PSV is <125 cm/sec and plaque or intimal thickening is visible sonographically additional criteria include ICA/CCA PSV ratio <2.0 and ICA EDV <40 cm/sec 50-69% ICA stenosis ICA PSV is 125-230 cm/sec and plaque is visible sonographically additional criteria include ICA/CCA PSV ratio of 2.0-4.0 and ICA EDV of 40-100 cm/sec 70% ICA stenosis but less than near occlusion ICA PSV is >230 cm/sec and visible plaque and luminal narrowing are seen at [place]-scale and color Doppler ultrasound (the higher the Doppler parameters lie above the threshold of 230 cm/sec, the greater the likelihood of severe disease) additional criteria include ICA/CCA PSV ratio >4 and ICA EDV >100 cm/sec INDICATION: TIN. TECHNIQUE: Multiple real-time sonographic images of the kidneys and bladder were obtained. COMPARISON: None FINDINGS: RIGHT kidney measures 10.67 cm in length. No hydronephrosis. LEFT kidney measures 9.3 cm in length. No hydronephrosis. Danielle catheter in the bladder in the bladder is empty. IMPRESSION: 1. 10.67 cm long right kidney. Left kidney measures 9.35 cm long. 2. No hydronephrosis. 3. No cortical thinning or increased cortical echogenicity. Condition at Discharge: Poor Final Diagnosis/Problems List - Altered level of consciousness due to acute metabolic encephalopathy. 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 - Acute urinary retention. - Possible UTI - Hypothyroidism - Hypertnsion - Alzheimer's dementia Discharge Disposition: Hospice - Home Discharge Instruct/Medications Diet: Regular Activity: No Restrictions, As Tolerated Follow Up/Referral: - Follow up with the PCP in 1 week. Discharge Statement: "Patient was advised to return to the ER or call 911 if any headaches, dizziness, shortness of breath, chest pain, abdominal pain, bleeding, fevers, or worsening of medical condition. Patient was counseled about treatment plan, medications, possible side effects, patientverbalized understanding. All questions were answered to the best of my ability. This discharge took greater then 30 minutes in planning, reviewing documentation, counseling the patient, and discussing with other team members." ASSESSMENT ASSESSMENT Assessment - Altered level of consciousness due to acute metabolic encephalopathy. 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 - Acute urinary retention. - Possible UTI - Hypothyroidism - Hypertnsion - Alzheimer's dementia Date of Service: Jan 04, 2024 Billing Provider: SUSANA FERMIN MD Common Visit Codes: 39375-RTG/OBS DISCH DAY >30min JAIRO JUNE Jan 04, 2024 19:27 SUSANA FERMIN MD Jan 04, 2024 19:37
[2024-01-05] VITALS (7 sets, daily range): BP systolic 91–134; BP diastolic 61–84; PULSE 75–97; RESP 17–18; TEMP 97.5–98.4; O2SAT 95–98
--- NOTE | 2024-01-05 19:15 | DVHPNRES ---
Progress Note Date Seen: Jan 05, 2024 Resident Creating Document: JAIRO JUNE RESIDENT Medical Necessity Reason Pt with a Central, PICC or Fol: Yes The following are medically ne: Danielle Catheter Subjective Review of Systems Patient is a 83-year-old male with past medical history of Alzheimer's dementia, hypertension, hyperlipidemia, hypothyroidism, who was brought in by family due to increasing confusion. Patient moved into an assisted living facility 3 weeks ago, prior to that was living at home with his . Per , patient had a witnessed fall from the wheelchair on 01/02/2024, after which he has been increasingly confused. Per patient's , patient is unable to complete activities of daily living and she found him slumped over in his wheelchair a few times at the assisted living facility. Patient is incomprehensible and altered. Patient seen and examined at bedside. Patient is unable to answer questions. Review of systems could not be completed. Objective vital signs Vital Sign Date Time Temp Pulse Resp B/P (MAP) Pulse Ox O2 Delivery O2 Flow Rate FiO2 01/05/24 17:19 97.5 83 18 96 01/05/24 16:42 99/65 (76) 01/05/24 08:00 Room Air* 0 21 Total Intake and Output 01/04/24 01/04/24 01/05/24 15:00 23:00 07:00 Intake Total 290 ml 0 ml Balance 290 ml 0 ml medications Current Medications Medications Dose Ordered Sig/Randy Route Start Time Stop Time Status Last Admin Dose Admin Docusate Sodium 100 mg BIDPRN PRN PO 01/02/24 09:00 Enoxaparin Sodium 40 mg DAILY SC 01/02/24 10:00 01/05/24 08:49 40 MG Acetaminophen 650 mg Q6HP PRN PO 01/02/24 09:00 Nitroglycerin 0.4 mg Q5MINP PRN SL 01/02/24 09:00 Morphine Sulfate 2 mg Q30M PRN IV 01/02/24 09:00 Quetiapine Fumarate 25 mg DAILY PO 01/02/24 10:00 01/05/24 08:49 25 MG Levothyroxine Sodium 75 mcg QAM PO 01/02/24 10:00 01/05/24 06:25 75 MCG Lisinopril 40 mg BID PO 01/02/24 10:00 01/05/24 08:49 40 MG Hydralazine HCl 10 mg Q6HP PRN IV 01/02/24 10:30 01/03/24 01:07 10 MG Examination Examination General Appearance: Cooperative. Well developed. Well nourished. NAD Head Exam: Normal inspection Neck Exam: Normal inspection. Non-tender. Normal alignment Pulmonary/Respiratory: Chest non-tender. Clear bilateral breath sounds, no crackles, no wheezing. Cardiovascular/Chest: Regular rate and rhythm. No murmurs. No JVD. Peripheral Pulses: 2+ Radial (R). 2+ Radial (L). 2+ Pedal (R). 2+ Pedal (L) Abdominal Exam: Normal bowel sounds. Soft. normal abdomen, no visible veins, Nontender. No hepatospenomegaly. No masses Upper extremities: Wound noted on the left forearm Ankle Exam: Negative ankle edema Lower extremities: Negative lower extremity edema Neuro/Mental Status: A&O x1. Incoherent Skin Exam: Normal inspection. Normal color. Warm. Dry laboratory and microbiology Laboratory Tests 01/04/24 05:35 Test 01/04/24 05:35 Range/Units Serum Glucose 99 74-106 mg/dL Microbiology Date/Time Source Procedure Growth Status 01/02/24 22:50 Nose MRSA Screen - Final Complete 01/02/24 13:05 Blood Blood Culture - Preliminary NO GROWTH AFTER 72 HOURS OF INCUBATION. Resulted Labs and/or images reviewed: Labs reviewed by me, Image(s) reviewed by me Problem List/Assessment/Plan Problem List/Assessment/Plan Problem List/Assessment/Plan # S/p mechanical fall - cervical spine CT: No acute fracture or dislocation. Moderate multilevel degenerative changes which include mild spinal canal narrowing and moderate to severe nauseous bilateral foraminal narrowing. Moderate calcifications of the carotid bulbs. Tiny foci of air in the bilateral internal jugular veins, likely from recent instrumentation. - CXR: No acute cardiopulmonary disease - head CT: No acute intracranial process. 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 - carotid Doppler: No hemodynamically significant stenosis noted in the right and left carotid systems. # TIN likely hemodynamically mediated resolved # Alzheimer's dementia - quetiapine 25 mg p.o. daily - PT evaluation. # hypertension - lisinopril 40 mg p.o. b.i.d. - Hydralazine 10 mg IV q.6 as needed for SBP > 160 # hypothyroidism - levothyroxine 75 mcg p.o. q.a.m. DVT prophylaxis: Lovenox 40mg Goals of care: DNR Plan of treatment discussed with Dr. Perkins Plan discussed with: Patient, Other My Orders My Orders Orders - JAIRO JUNE Procedure Category Date Status Time Discharge DISCHARGE 01/05/24 Transmitted 12:00 * Pyrotechnic Assembler CONS 01/05/24 Transmitted Consult Dietary Evaluation Review Comments: 1. Recommend follow V[employer]UNTEER RE[employer]UITMENT COORDINATOR diet texture recommendation Expected Outcomes/Goals: 1.Pt will consume >75% of estimated needs within 3-5 days Date of Service: Jan 05, 2024 Billing Provider: SUSANA PERKINS MD Common Visit Codes: [id number] INP/OBS CARE(MOD) JAIRO JUNE RESIDENT Jan 05, 2024 19:15 SUSANA PERKINS MD Jan 05, 2024 20:18
== END 2024-01-05 22:55 | DRG 682 ==
LOC: EDBD 22:32 → ER 22:32 → TELE 01-02 09:01 → TELE-WESTW 01-02 19:02 → WEST WING 01-04 12:16
PROVIDERS: ADMIT Internal Medicine; ATTEND Internal Medicine
DX: N17.0 Acute kidney failure with tubular necrosis (principal); G93.41 Metabolic encephalopathy; N39.0 Urinary tract infection, site not specified; E86.0 Dehydration; I12.9 Hypertensive chronic kidney disease with stage 1 through stage 4 chronic kidney disease, or unspecified chronic kidney disease; D72.829 Elevated white blood cell count, unspecified; N18.9 Chronic kidney disease, unspecified; F02.80 Dementia in other diseases classified elsewhere, unspecified severity, without behavioral disturbance, psychotic disturbance, mood disturbance, and anxiety; E78.5 Hyperlipidemia, unspecified; E03.9 Hypothyroidism, unspecified; G30.9 Alzheimer's disease, unspecified; Z88.0 Allergy status to penicillin; Z79.899 Other long term (current) drug therapy
CPT/HCPCS: 36415; 70450; 71045; 72125; 76775; 80048; 80053; 80061; 81001; 82306; 82570; 82607; 83605; 83735; 83930; 83970; 84100; 84156; 84300; 84443; 84484; 85025; 87040; 87081; 92610; 93886; 96360; 97110; 97116; 97163; 97530; G0378; J0692; J2405